=== PATIENT | female | born 1975 | race Hispanic/Latino ===

== ENCOUNTER 2017-12-26 21:51 | Emergency (ER) | payer OTHER, SELFPAY ==
[2017-12-26 21:52] VITALS: BP 119/79; PULSE 67; RESP 15; TEMP 36.7; BMI 23.6
--- NOTE | 2017-12-26 22:00 | RAD_ITS ---
STUDY: X-RAY - LEFT FOOT CLINICAL: Female, 41 years old. Urinary TECHNIQUE: 3 view(s) of the foot. COMPARISON: None. FINDINGS: There is comminuted fracture at the tuft of the second distal phalanx. This appears chronic in nature. There is mild hallux valgus. Normal talus, calcaneus, and tarsal bones. Normal visualized subtalar, talonavicular, calcaneocuboid, tarsal and tarsometatarsal articulations. Normal metatarsi. Normal metatarsophalangeal joint of the great toe. Normal tibial and fibular sesamoid bones. Normal interphalangeal joint of the great toe. Normal phalanges of the great toe. Normal second through fifth metatarsophalangeal joints. Normal interphalangeal joints of the lesser toes. The soft tissue structures are unremarkable. RAD/Foot min 3 Views IMPRESSION: Chronic fracture, tuft of the second distal phalanx No acute fracture Electronically Signed: Robles Moise MD at 22:18 EST Tel , Service support ,
--- NOTE | 2017-12-26 22:47 | ED.DCSUM_ITS ---
- ER Visit Summary Date of Service: 12/26/17 Chief Complaint: Injury left foot near MTP joint left great toe History of Present Illness: The patient is a 41 F who reports she dropped a can on her foot this morning. She complains of pain over the MTP joint of her left great toe. She denies any paresthesia, anesthesia or motor weakness. She reports the pain has gotten worse since the injury. She has no other complaints Physical Examination: There is slight erythema over the MTP joints of the left great toe. There is no subungual hematoma. DP and PT pulses are palpable. There is no pain palpation over the second, third, fourth or fifth metatarsal. There is no pain the patient over the proximal, middle or distal phalanx of the second, third, fourth or fifth toe. Test Results: Three-view x-ray of the foot was obtained and interpreted by me as negative for acute process. She has evidence of a prior fracture distal phalanx left second toe that is comminuted. Emergency Department Course and Treatment: Protocol for x-ray Treatment Plan: Ice, rest, elevation and anti-inflammatory agents since there is no contraindication Disposition: Discharge to home Impression: Contusion left foot secondary to blunt injury initial encounter This note was generated with Vonjour dictation software. It may contain incorrect words, spelling, and punctuation that were not noted in review of the chart prior to signing ED Disposition - Plan for ED Patient: Disposition: Home or Assisted Living Chief Complaint: Lower Extremity Injury Instructions: ED Contusion Foot Referrals: Rafael Andrea, MEDICAL RADIATION THERAPIST-C [Primary Care Provider] - 1 Week if not improving Additional Instructions: Apply ice 6 times a day for 20-30 minutes at a time. Take either 4 Advil every 8 hours or 2 Aleve every 12 hours for the next 3-5 days for pain control.
[2017-12-26 23:02] VITALS: RESP 16
--- NOTE | 2017-12-26 23:02 | ED.RN ---
REVIEWED D/C INSTRUCTIONS, FOLLOW UP CARE, AND S/S THAT WOULD WARRANT A RETURN TO THE ED WITH PT. PT VERBALIZED AN UNDERSTANDING AND DENIES FURTHER QUESTIONS FOR THIS RN. PT SKIN P/W/D, RESP EVEN AND UNLABORED, PT A&O X 3, NO DISTRESS NOTED. PT AMBULATED OUT OF ED, GAIT STEADY.
== END 2017-12-26 23:08 | disposition home or self-care (01) ==
PROVIDERS: Emergency Provider Emergency Medicine; Family Provider Nurse Practitioner Family; PCP Nurse Practitioner Family
DX: S90.32XA Contusion of left foot, initial encounter (principal); W22.8XXA Striking against or struck by other objects, initial encounter; Y93.9 Activity, unspecified; Z72.0 Tobacco use; F31.9 Bipolar disorder, unspecified; Z79.899 Other long term (current) drug therapy
CPT/HCPCS: 73630; 99282

== ENCOUNTER → 2018-04-09 12:26 | Outpatient (CLI) | payer OTHER, SELFPAY ==
[2018-04-09 13:52] LABS: Absolute Lymphocyte Count 2.92 X10^3/ul (0.83-4.51); Absolute Neutrophil Count 7.9 X10^3/uL (2.0-7.7); Basophil# 0.03 X10^3/uL; Basophil% 0.2 % (0-1); Eosinophil# 0.29 X10^3/uL; Eosinophils% 2.4 % (0-5); Hematocrit 42.7 % (37-47); Hemoglobin 13.9 g/dl (12.0-15.0); Immature Platelet Fraction 1.1 % (1.0-7.9); Lymphocyte # 2.92 X10^3/ul (4.0); Lymphocyte % 24.3 % (19-41); Mean Corp Hgb Conc 32.6 g/gl (32-36); Mean Corpuscular Hgb 26.6 pg (27.0-32.0); Mean Corpuscular Volume 81.6 fL (81-99); Mean Platelet Vol. 9.8 fl (6.2-12.0); Monocyte# 0.83 X10^3/uL; Monocyte% 6.9 % (0-10); Neutrophil # 7.94 X10^3/uL (2.7-7.7); POSITIVE COUNT NO; POSITIVE DIFFERENTIAL NO; POSITIVE MORPHOLOGY NO; Platelet Count 280 K/mm3 (150-450); RBC Distribution Width CV 14.8 % (11.6-14.6); RBC Distribution Width SD 43.9 fl (35.1-43.9); RET-HE 28.7 pg (30-35); Red Blood Count 5.23 M/mm3 (4.2-5.4); Reticulocyte Count 1.23 % (0.5-1.5)
[2018-04-09 14:07] LABS: ALB/GLOB Ratio 1.1 RATIO (0.9-2.4); AST(SGOT) 14 U/L (15-37); Alanine Aminotransfer ALT/SGPT 15 U/L (13-56); Albumin, Serum 3.9 g/dL (3.2-5.0); Alkaline Phosphatase 69 U/L (45-117); Anion Gap 7 (5-15); BUN 5 mg/dL (7-18); Calcium,Total 8.7 mg/dL (8.5-10.1); Chloride 107 mmol/L (98-107); Cholesterol 174 mg/dL (200); Creatinine, Serum 0.63 mg/dL (0.55-1.02); EST Glomerular Filtration Rate 110 mL/min (>60); Est Glom Filt Rate - Afr Amer 133 mL/min (>60); Globulin 3.7 g/dL (2.2-4.2); Glucose 113 mg/dL (74-106); High Density Lipoprotein 33 mg/dL; Iron 37 ug/dL (50-170); Iron Binding Capacity,Total 277 ug/dL (250-450); Potassium 3.9 mmol/L (3.5-5.1); Protein, Total 7.6 g/dL (6.4-8.2); Sodium Level 138 mmol/L (136-145); Triglycerides 192 mg/dL; Very Low Density Lipoprotein 38 mg/dL (5-40)
[2018-04-09 14:13] LABS: Hemoglobin A1c 5.8 % (4.2-6.3)
== END ==
PROVIDERS: Family Provider Nurse Practitioner Family; PCP Nurse Practitioner Family; Visit Provider Nurse Practitioner Family
DX: E78.5 Hyperlipidemia, unspecified (principal); R73.01 Impaired fasting glucose; D63.8 Anemia in other chronic diseases classified elsewhere; Z79.899 Other long term (current) drug therapy
CPT/HCPCS: 80053; 80061; 83036; 83540; 83550; 85025; 85045

== ENCOUNTER → 2018-11-25 14:00 | Outpatient (CLI) | payer BC, OTHER, SELFPAY ==
--- NOTE | 2018-11-25 14:10 | RAD_ITS ---
STUDY: X-RAY CHEST REASON FOR EXAM: Female, 42 years old. Acute bronchitis diagnosed 1st week of October. Cannot keep food or medication down. TECHNIQUE: PA and lateral chest COMPARISON: None. FINDINGS: The lungs are clear and expanded. Normal cardiomediastinal silhouette, sampson and pleural margins. No acute osseous or upper abdominal process. RAD/Chest PA and Lateral IMPRESSION: No acute cardiopulmonary process. No convincing radiographic evidence of acute bronchitis/bronchiolitis or focal pneumonia. Electronically Signed: Rafael Macias MD at 17:51 EST Tel , Service support ,
== END ==
PROVIDERS: Family Provider Nurse Practitioner Family; PCP Nurse Practitioner Family; Referring Provider Nurse Practitioner Family; Visit Provider Nurse Practitioner Family
DX: J20.9 Acute bronchitis, unspecified (principal)
CPT/HCPCS: 71046

== ENCOUNTER → 2019-07-08 11:36 | Outpatient (CLI) | payer BC, OTHER, SELFPAY ==
[2019-07-08 12:32] LABS: Hematocrit 44.7 % (37-47); Hemoglobin 14.6 g/dL (12.0-15.0); Mean Corp Hgb Conc 32.7 g/dL (32-36); Mean Corpuscular Hgb 27.1 pg (27.0-32.0); Mean Corpuscular Volume 83.1 fL (81-99); Mean Platelet Vol. 10.1 fl (6.2-12.0); Platelet Count 285 K/mm3 (150-450); RBC Distribution Width CV 14.7 % (11.6-14.6); RBC Distribution Width SD 44.5 fl (35.1-43.9); Red Blood Count 5.38 M/mm3 (4.2-5.4); White Blood Count 11.4 K/mm3 (4.4-11.0)
[2019-07-08 12:51] LABS: Hemoglobin A1c 5.4 % (4.2-6.3)
[2019-07-08 13:10] LABS: ALB/GLOB Ratio 1.2 RATIO (0.9-2.4); AST(SGOT) 14 U/L (15-37); Alanine Aminotransfer ALT/SGPT 19 U/L (13-56); Alkaline Phosphatase 71 U/L (45-117); Anion Gap 5 (5-15); BUN 6 mg/dL (7-18); BUN/Creat Ratio 10.2 RATIO (10-20); Calcium,Total 9.1 mg/dL (8.5-10.1); Chloride 110 mmol/L (98-107); Cholesterol 203 mg/dL (200); Creatinine, Serum 0.59 mg/dL (0.55-1.02); EST Glomerular Filtration Rate 118 mL/min (>60); Est Glom Filt Rate - Afr Amer 143 mL/min (>60); Globulin 3.4 g/dL (2.2-4.2); Glucose 100 mg/dL (74-106); High Density Lipoprotein 28 mg/dL; Protein, Total 7.4 g/dL (6.4-8.2); Sodium Level 139 mmol/L (136-145); Triglycerides 493 mg/dL
== END ==
PROVIDERS: Family Provider Nurse Practitioner Family; PCP Nurse Practitioner Family
DX: Z79.899 Other long term (current) drug therapy (principal)
CPT/HCPCS: 36415; 80053; 80061; 83036; 85027

== ENCOUNTER 2019-12-05 22:13 | Emergency (ER) | payer BC, OTHER, SELFPAY ==
[2019-12-05 22:14] VITALS: BP 142/79; PULSE 66; RESP 15; TEMP 36.6; O2SAT 99; BMI 22.8
--- NOTE | 2019-12-05 22:35 | ED.VISSUMM ---
- ER Visit Summary Date of Service: 12/05/19 Chief Complaint: Right shoulder pain History of Present Illness: The patient is a 43 F with right shoulder pain that started this evening at work when she turned. It feels like when she had a pinched nerve in the past. The pain is in her right scapular region. Does not radiate to the arm or neck. She denies chest pain or respiratory symptoms. Denies weakness or numbness. No trauma. Physical Examination: Afebrile and vital signs unremarkable. Inspection is normal. Good range of motion. Tenderness to palpation over the right scapula. Lungs clear. Heart regular. Good strength, sensation, pulses. Neck is nontender. Test Results: None indicated Emergency Department Course and Treatment: Patient has myofascial back pain. She has an allergy to NSAIDs. She was treated with Kenalog and Norflex. Will prescribe Flexeril for home. She can use Tylenol for pain. Follow-up with primary care. Treatment Plan: As above Disposition: Discharge Impression: 1. Right shoulder pain This note was generated with Super[employer] dictation software. It may contain incorrect words, spelling, and punctuation that were not noted in review of the chart prior to signing ED Disposition - Plan for ED Patient: Referrals: Rafael Andrea, YONY-C [Primary Care Provider] -
--- NOTE | 2019-12-05 22:37 | ED.DEP ---
ED Disposition - Plan for ED Patient: Instructions: SHOULDER PAIN (Uncertain Cause) Prescriptions: cycloBENZAPRine HCl [Flexeril] 10 mg PO TID PRN #20 tab PRN Reason: Muscle Spasm Prescription Printed Referrals: Rafael Andrea, ASSOCIATE PROFESSOR OF SURGERY-C [Primary Care Provider] -
[2019-12-05] MEDS: Orphenadrine 60 MG/2 ML Ampul IM (22:45)
[2019-12-05] MEDS: Triamcinolone Acetonide 40 MG/ML Vial IM (22:47)
== END 2019-12-05 23:20 | disposition home or self-care (01) ==
LOC: ED 22:38
PROVIDERS: Emergency Provider Emergency Medicine; PCP Nurse Practitioner Family
DX: M25.511 Pain in right shoulder (principal); Z72.0 Tobacco use
CPT/HCPCS: 96372; 99282

== ENCOUNTER 2021-03-11 22:57 | Emergency (ER) | payer OTHER, SELFPAY ==
[2021-03-11 22:58] VITALS: BP 130/77; PULSE 81; RESP 15; TEMP 35.8; O2SAT 95; BMI 24.5
--- NOTE | 2021-03-11 23:40 | EDS_ITS ---
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 No lacerations, she was briefly dazed and has been seen spots in her vision off and on, no flashes of light or loss of vision anywhere. She has a frontal headache, no nausea or vomiting or confusion. No lateralizing neurologic symptoms peripherally no trouble walking, talking, thinking. No seizure. [facility] Medical History Bipolar disorder Hypersomnolence Nicotine dependence Home Medications Seroquel 100 mg PO QHS 10/01/14 [History Last Taken Unknown] escitalopram oxalate 20 mg PO QHS 01/05/17 [History Last Taken Unknown] hydroxyzine HCl 10 mg PO PRN PRN 01/05/17 [History Last Taken Unknown] lamotrigine [Lamictal] 400 mg PO QHS 04/03/17 [History Last Taken Unknown] cyclobenzaprine 10 mg PO TID PRN #20 tab 12/05/19 [Rx Last Taken Unknown] Allergy/AdvReac Type Severity Reaction Status Date / Time Penicillins Allergy Shortness Verified 03/11/21 23:02 of breath NSAIDS (Non-Steroidal AdvReac Nausea Verified 03/11/21 23:02 Anti-Inflamma Surgical History H/O: hysterectomy Social History Smoking Status: Current every day smoker ROS ROS ED Constitutional Constitutional ED: Denies chills or fever(s) Eyes Eyes: Reports as per HPI and change in vision; Denies blurry vision or diplopia ENT ENT ED: Denies rhinorrhea or sore throat Cardiovascular Cardiovascular: Denies chest pain or palpitations Respiratory/Chest Respiratory/Chest: Denies cough or dyspnea Gastrointestinal Gastrointestinal: Denies abdominal pain, diarrhea, nausea or vomiting Genitourinary Genitourinary ED: Denies dysuria or hematuria Musculoskeletal Musculoskeletal: Denies back pain or neck pain Integumentary Denies abscess or rash Neurologic Neurologic: Reports headache(s); Denies paresthesias or weakness Psychiatric Psychiatric: Denies anxiety or suicidal thoughts EXAM Physical Exam Const Vital Signs: 03/11/21 22:58 03/11/21 23:10 Temperature 96.4 F L Temperature Source Temporal Pulse Rate 81 Respiratory Rate 15 Blood Pressure 130/77 H Blood Pressure Mean 94 Pulse Ox 95 Oxygen Delivery Method Room Air Room Air Positive well nourished and well developed General Appearance ED: well developed and NAD HEENT Reports TM's clear and moist mucous membranes HEENT Narrative: Mildly tender left top of head, scalp is otherwise normal- appearing without hematoma, crepitance, depression normocephalic, atraumatic, scalp tenderness and other Other Details: No periorbital ecchymosis. No hemotympanum, TMs clear bilaterally. ; Negative for Rod's sign Tympanic Membrane ED: Yes TM's clear Eyes PERRL and EOMs intact bilaterally Neck full ROM and supple Resp normal respiratory effort and clear to auscultation bilaterally Cardio regular rate, regular rhythm and no murmurs GI non-tender and non-distended Auscultation: normoactive bowel sounds Palpation: soft Back/Spine no CVA tenderness General Back: other FROM Extremity normal to inspection General Extremety ED: Negative for edema, pulses abnormal or tenderness General Extremity: Negative for edema or pulses abnormal Neuro oriented x3, CN's II-XII intact bilaterally and no sensory deficits noted Oli Coma Scale: document GCS findings Spontaneous Obeys Commands Oriented 15 Sensorium / Orientation: awake and alert Motor Exam: strength 5/5 throughout Skin no rashes or lesions noted and no wounds MDM MDM MDM Narrative Medical decision making narrative: Patient meets the [place] CT head rule for observation without the need for scanning at this time. I discussed this with her, she is comfortable with that. We discussed reasons to return, but the chances of intracranial clinically significant injury is extremely low here especially with the mechanism. She is written off for tomorrow, since she is at the end of her shift, given some acetaminophen since she does not tolerate NSAIDs well, and appropriate discharge instructions with follow-up. Discharge Plan Triage Chief Complaint: Head Injury ED Provider: Carlos Shaffer Dx/Rx/DC Orders Clinical Impression: Closed head injury without loss of consciousness Instructions: ED Head Injury (Adult) Prescriptions: No Action Seroquel 100 mg PO QHS RF: 0 hydroxyzine HCl 10 MG tablet 10 mg PO PRN PRN (Reason: Anxiety) RF: 0 escitalopram oxalate 20 MG tablet 20 mg PO QHS RF: 0 lamotrigine [Lamictal] 200 MG tablet 400 mg PO QHS RF: 0 cyclobenzaprine 10 MG tablet 10 mg PO TID PRN (Reason: Muscle Spasm) Qty: 20 RF: 0 Stand Alone Forms: Work Status Form Primary Care Provider: Rafael Andrea NP Referrals: [facility] [GROUP OF PHYSICIANS] - 2 Days Rafael Andrea FISH NET STRINGER, FISH NET STRINGER-C [Primary Care Provider] - Disposition Disposition: Home, self care
[2021-03-12 00:03] VITALS: BP 112/88
[2021-03-12] MEDS: Acetaminophen 500 MG Tablet 1000 MG PO (00:05)
== END 2021-03-12 00:06 | disposition home or self-care (01) ==
PROVIDERS: Emergency Provider Emergency Medicine; PCP Nurse Practitioner Family
DX: S09.90XA Unspecified injury of head, initial encounter (principal); W22.8XXA Striking against or struck by other objects, initial encounter; Y93.89 Activity, other specified; Y92.63 Factory as the place of occurrence of the external cause; Y99.0 Civilian activity done for income or pay; F17.200 Nicotine dependence, unspecified, uncomplicated
CPT/HCPCS: 99283

== ENCOUNTER 2021-08-24 15:33 | Emergency (ER) | payer OTHER, SELFPAY ==
[2021-08-24 15:34] VITALS: BP 113/66; PULSE 72; RESP 19; TEMP 35.9; O2SAT 99; BMI 23.3
--- NOTE | 2021-08-24 15:59 | EDS_ITS ---
HPI History of Present Illness Chief Complaint: Allergic Reaction Narrative Narrative: 45-year-old female presenting with eye irritation bilaterally as well as burning in her naris. She believes it was due to some fiberglass carpeting in a place where she interviewed today. She was wearing safety goggles and does not believe she had anything in her eyes. She does not have any shortness of breath, throat tightness, rash, abdominal pain. Patient states she took nothing prior to arrival. She denies any symptoms of cough or cold. [facility] Medical History Bipolar disorder Hypersomnolence Nicotine dependence Home Medications Seroquel 100 mg PO QHS 10/01/14 [History Last Taken Unknown] escitalopram oxalate 20 mg PO QHS 01/05/17 [History Last Taken Unknown] hydroxyzine HCl 10 mg PO PRN PRN 01/05/17 [History Last Taken Unknown] lamotrigine [Lamictal] 400 mg PO QHS 04/03/17 [History Last Taken Unknown] cyclobenzaprine 10 mg PO TID PRN #20 tab 12/05/19 [Rx Last Taken Unknown] Allergy/AdvReac Type Severity Reaction Status Date / Time Penicillins Allergy Shortness Verified 08/24/21 15:35 of breath NSAIDS (Non-Steroidal AdvReac Nausea Verified 08/24/21 15:35 Anti-Inflamma Surgical History H/O: hysterectomy Social History Smoking Status: Current every day smoker tobacco type: cigarettes ROS ROS ED Constitutional Constitutional ED: Denies chills, fever(s) or sweats Eyes Eyes: Reports other Details: Bilateral eye itching ; Denies blurry vision or change in vision ENT ENT ED: Reports other Details: Burning there ; Denies ear pain or sore throat Cardiovascular Cardiovascular: Denies chest pain, palpitations or racing heartbeat Respiratory/Chest Respiratory/Chest: Denies cough, dyspnea or sputum Gastrointestinal Gastrointestinal: Denies abdominal pain, constipation, diarrhea, nausea or vomiting Genitourinary Genitourinary ED: Denies dysuria, hematuria or urinary frequency Musculoskeletal Musculoskeletal: Denies arthralgias, myalgias or neck pain Integumentary Denies abscess, Abrasions or rash Neurologic Neurologic: Denies headache(s), paresthesias or weakness Psychiatric Psychiatric: Denies anxiety, depression, suicidal ideation or suicidal thoughts Endocrine Endocrinology: Denies polydipsia or polyuria EXAM Physical Exam Const Vital Signs: 08/24/21 15:34 Temperature 96.6 F L Temperature Source Temporal Pulse Rate 72 Respiratory Rate 19 H Blood Pressure 113/66 Blood Pressure Mean 81 Pulse Ox 99 Oxygen Delivery Method Room Air Positive well nourished General Appearance ED: NAD; Negative for pallor HEENT Reports normocephalic, head/scalp atraumatic and moist mucous membranes HEENT Narrative: Eyes are noninjected. Oropharynx is patent without stridor. No sublingual edema. Negative for trauma Eyes PERRL and EOMs intact bilaterally Neck no lymphadenopathy and supple Chest Wall inspection of chest normal and palpation of chest normal Resp normal respiratory effort and clear to auscultation bilaterally Auscultation: Negative for rales, rhonchi or wheezes Cardio regular rate and regular rhythm Narrative: Deferred Back/Spine Cervical Spine: cervical spine tenderness Neuro oriented x3 and CN's II-XII intact bilaterally Sensorium / Orientation: alert Motor Exam: strength 5/5 throughout Psych mental status grossly normal Attitude: No agitated Skin no rashes or lesions noted and no wounds General Skin Exam: Negative for jaundice or pallor MDM MDM MDM Narrative Medical decision making narrative: 45-year-old female presenting with presumed allergy to the carpeting in the place where she was applying for a job. He does not have any sign of anaphylactic reaction. Her eyes are noninjected. She does not believe she had any foreign bodies in her eyes because she was wearing safety goggles. Her vital signs are normal. Her physical exam is normal. I counseled her to use Benadryl at home. I offered her a first dose here and she declined. I also did intellectual property counsel her that she could try rewetting eyedrops. I would have given her Toradol eyedrops however she is allergic to NSAIDs. Patient disch arged home in stable condition. Impression: 1. Allergic reaction Discharge Plan Triage Chief Complaint: Allergic Reaction ED Provider: Alfa Scott Dx/Rx/DC Orders Instructions: ED General Allergic Reactions Prescriptions: No Action Seroquel 100 mg PO QHS RF: 0 hydroxyzine HCl 10 MG tablet 10 mg PO PRN PRN (Reason: Anxiety) RF: 0 escitalopram oxalate 20 MG tablet 20 mg PO QHS RF: 0 lamotrigine [Lamictal] 200 MG tablet 400 mg PO QHS RF: 0 cyclobenzaprine 10 MG tablet 10 mg PO TID PRN (Reason: Muscle Spasm) Qty: 20 RF: 0 Primary Care Provider: Rafael Andrea NP Referrals: Rafael Andrea NP, PRINTING GRAY CLOTH TENDER-C [Primary Care Provider] - Disposition Disposition: Home, Self Care
== END 2021-08-24 16:08 | disposition home or self-care (01) ==
LOC: ED 16:02
PROVIDERS: Emergency Provider Student in an Organized Health Care Education/Training Program; PCP Nurse Practitioner Family
DX: T78.40XA Allergy, unspecified, initial encounter (principal); X58.XXXA Exposure to other specified factors, initial encounter; F31.9 Bipolar disorder, unspecified; F17.210 Nicotine dependence, cigarettes, uncomplicated; Z79.899 Other long term (current) drug therapy
CPT/HCPCS: 99282

== ENCOUNTER → 2023-01-20 | Outpatient (CLI) | payer OTHER, SELFPAY ==
[2023-01-20 11:58] LABS: Hematocrit 40.6 % (37-47); Hemoglobin 13.1 g/dL (12.0-15.0); Mean Corp Hgb Conc 32.3 g/dL (32-36); Mean Corpuscular Hgb 27.2 pg (27.0-32.0); Mean Corpuscular Volume 84.4 fL (81-99); Mean Platelet Vol. 8.9 fl (6.2-12.0); Platelet Count 302 K/mm3 (150-450); RBC Distribution Width CV 14.3 % (11.6-14.6); RBC Distribution Width SD 43.9 fl (35.1-43.9); Red Blood Count 4.81 M/mm3 (4.2-5.4); White Blood Count 11.1 K/mm3 (4.4-11.0)
[2023-01-20 12:20] LABS: ALB/GLOB Ratio 1.1 RATIO (0.9-2.4); AST(SGOT) 13 U/L (15-37); Alanine Aminotransfer ALT/SGPT 15 U/L (13-56); Albumin, Serum 3.4 g/dL (3.2-5.0); Alkaline Phosphatase 58 U/L (45-117); Anion Gap 2 (5-15); BUN 8 mg/dL (7-18); BUN/Creat Ratio 15.4 RATIO (10-20); Chloride 113 mmol/L (98-107); Creatinine, Serum 0.52 mg/dL (0.55-1.02); EST Glomerular Filtration Rate 134 mL/min (>60); Est Glom Filt Rate - Afr Amer 162 mL/min (>60); Globulin 3.1 g/dL (2.2-4.2); Glucose 120 mg/dL (74-106); Potassium 3.6 mmol/L (3.5-5.1); Protein, Total 6.5 g/dL (6.4-8.2); Sodium Level 140 mmol/L (136-145)
[2023-01-21 18:45] LABS: Hemoglobin A1c 5.2 % (3.8-5.6)
[2023-01-22 08:43] LABS: Cholesterol 194 mg/dL (200); High Density Lipoprotein 36 mg/dL; Triglycerides 89 mg/dL; Very Low Density Lipoprotein 18 mg/dL (5-40)
== END | disposition home or self-care (01) ==
LOC: LAB 11:26
PROVIDERS: PCP Nurse Practitioner Family; Visit Provider Nurse Practitioner Family
DX: R73.01 Impaired fasting glucose (principal); F31.9 Bipolar disorder, unspecified; D64.9 Anemia, unspecified; E78.5 Hyperlipidemia, unspecified; E78.1 Pure hyperglyceridemia
CPT/HCPCS: 36415; 80053; 80061; 83036; 85027

== ENCOUNTER 2024-01-04 11:02 | Day surgery (SDC) | payer OTHER, SELFPAY ==
[2024-01-01 14:29] LABS: Hematocrit 41.4 % (37-47); Hemoglobin 13.4 g/dL (12.0-15.0); Mean Corp Hgb Conc 32.4 g/dL (32-36); Mean Corpuscular Hgb 26.9 pg (27.0-32.0); Platelet Count 306 K/mm3 (150-450); RBC Distribution Width CV 14.7 % (11.6-14.6); RBC Distribution Width SD 44.5 fl (35.1-43.9); Red Blood Count 4.99 M/mm3 (4.2-5.4)
[2024-01-01 14:53] LABS: Magnesium 2.2 mg/dL (1.6-2.6)
[2024-01-01 15:06] LABS: Amphetamine Urine VISTA NEGATIVE (<1000 ng/mL); Barbiturate Urine VISTA NEGATIVE (< 200 ng/mL); Benzodiazepine Urine VISTA NEGATIVE (< 200 ng/mL); Cocaine Urine VISTA NEGATIVE (< 300 ng/mL); Ecstacy Urine VISTA NEGATIVE (< 500 ng/mL); Methadone Urine VISTA NEGATIVE (< 300 ng/mL); PCP Urine VISTA NEGATIVE (< 25 ng/mL); THC Urine VISTA POSITIVE (< 50 ng/mL); Vista UDS pH Range 6
[2024-01-01 15:07] LABS: Vitamin D,25 Hydroxy 7.6 ng/mL
[2024-01-01 15:24] LABS: Hemoglobin A1c 5.4 % (3.8-5.6)
[2024-01-02 08:29] LABS: COTININE Drug Screen Positive (<200 ng/mL)
[2024-01-04] VITALS (8 sets, daily range): BP systolic 113–124; BP diastolic 50–64; PULSE 53–71; RESP 16; TEMP 36.1–36.4; O2SAT 95–100; BMI 19.7
--- NOTE | 2024-01-04 11:24 | EKG12_ITS ---
Test Reason : preop Blood Pressure : / mmHG Vent. Rate : 054 BPM Atrial Rate : 054 BPM P-R Int : 170 ms QRS Dur : 100 ms QT Int : 438 ms P-R-T Axes : 081 082 056 degrees QTc Int : 415 ms Sinus bradycardia Otherwise normal ECG When compared with ECG of 13-APR-2017 00:40, Vent. rate has decreased BY 34 BPM Nonspecific T wave abnormality no longer evident in Inferior leads Confirmed by Cesar Castaneda ([id number]), editorial manager MAT RODRIGUEZ ([id number]) on 01/08/2024 11:32:25 AM Referred By: Greg Yin Confirmed By:Cesar Castaneda
[2024-01-04] MEDS: Acetaminophen 500 MG Tablet 1000 MG PO (11:52)
[2024-01-04] MEDS: Magnesium 1 GM over 15 mins IV (11:52)
[2024-01-04] MEDS: Lactated Ringers 1,000 ML 15 ML IV (11:52)
[2024-01-04] MEDS: Gabapentin 600 MG Tablet PO (11:52)
[2024-01-04 12:15] LABS: Bedside Glucose 141 mg/dL (74-106)
[2024-01-04] MEDS: Clindamycin 900 MG/50 ML BAG 75 MG IV (13:13)
[2024-01-04] MEDS: Bupivacaine Mpf 0.5% 30 ML VIAL (13:20)
--- NOTE | 2024-01-04 14:00 | RAD_ITS ---
STUDY: X-RAY - LEFT FOOT CLINICAL: Female, 48 years old. ERAS FIRST TMTJ ARTHRODESIS WITH HARVEST OF CALCANEAL BONEGRAFT TECHNIQUE: 2 view(s) of the foot. COMPARISON: 12/26/2017 FINDINGS: 200 seconds of fluoroscopy of the left foot was utilized in the operating room during first tarsometatarsal joint arthrodesis and 8 images are cemented for interpretation. . RAD/Foot 2 Views IMPRESSION: Fluoroscopy during first tarsometatarsal joint arthrodesis. Electronically Signed: Rafael Barnett MD at 20:33 EST ,
--- NOTE | 2024-01-04 16:15 | OP.PCM_ITS ---
Problems Associated Problem List Diagnoses (1) Hallux valgus of left foot: (2) Pain in left foot: (3) Short Achilles tendon (acquired), left ankle: (4) Other hammer toe(s) (acquired), left foot: (5) Achilles tendinitis, left leg: (6) Pain in left ankle and joints of left foot: Report of Operation Date of Procedure: 01/04/24 Pre-Operative Diagnosis: 1. Hallux valgus, left foot 2. Hammertoes, second and third digit, left foot 3. Pain left foot secondary to osteoarthritis 4. Short Achilles tendon, left lower extremity 5. Pain, left foot Post-Operative Diagnosis: 1. Hallux valgus, left foot 2. Hammertoes, second and third digit, left foot 3. Pain left foot secondary to osteoarthritis 4. Short Achilles tendon, left lower extremity 5. Pain, left foot Surgery/Procedure Performed:: 1. Endoscopic gastroc recession, left lower extremity 2. [place] of calcaneal bone graft, left foot 3. Arthrodesis first metatarsal phalangeal joint, left foot 4. Capsulotomy of the first metatarsophalangeal joint, left foot 5. Lesser metatarsal osteotomy, second metatarsal, left foot 6. Lesser metatarsal osteotomy, third metatarsal, left foot 7. Flexor tenotomy, fourth digit, left foot Description of Surgical Findings:: 1. Increased range of motion of the left ankle with the knee extended and flexed, left lower extremity 2. Reduction of hallux valgus deformity, left foot 3. Improvement to hammertoes after lesser metatarsal osteotomies to second and third metatarsal, left foot 4. More rectus fourth digit after flexor tenotomy, left foot Surgeon: Greg Yin truck service manager: Wisam Wright Type of Anesthesia: General and Local Anesthesiologist: Portillo Bruce Special Medications: Per anesthesia Specimen's removed: None Drains: None Estimated Blood Loss (mL): 35 mL Fluids Replaced: Per anesthesia Description of Procedure: Indications For Operation: Ms. Reed is a 48-year-old female who was admitted to [facility] for elective bunion corrective surgery as well as lower extremity surgery to the left lower extremity. Patient is well-known to my practice and was seen in office for surgical consultation with all risk and benefits discussed with the patient in great detail. Patient originally presented with chronic pain with valgus deformity to her left foot. Patient has failed all conservative methods consisting of shoe gear modification, treatment with padding, strapping and other types of treatment consisting of oral anti- inflammatories without success. Patient has failed all conservative treatment at this time. We are recommending surgical intervention. The patient does understand all risk, benefits and complications for the surgical procedure. All questions have been answered to the patient with great detail. Due to left lower extremity deformity it has been deemed necessary at this time to take the patient to the operating room to perform the above procedure to decrease her constant pain. The nature of the problem, anticipated procedures, postop recovery/convalences and risk/complications include but not limited to infection, wound healing complications, digital amputation, hypertrophic scarring, numbness, tingling, chronic pain, CRPS, over and under correction, recurrence of deformity, DVT and or PE and the need for further surgery have been discussed in great detail with the patient. All questions have been answered to the patient's satisfaction. There are no guarantees given as to the outcome of the procedure. Description of Procedure: Under mild sedation, the patient was brought into the operating room and placed on the operating table in supine position. Once the patient was under general anesthesia with laryngeal mask airway, the left lower extremity was blocked using approximately 10 cc 0.5% Marcaine plain to the saphenous nerve. Patient has received popliteal block per anesthesia and holding prior to the procedure. Please see anesthesia notes for further detail. Next, a well-padded thigh tourniquet was applied to the left lower extremity. Next, the left lower extremity was prepped and draped in normal aseptic manner. Next, a timeout was then undertaken verifying the correct patient, extremity, visibility of preoperative markings, availability of the equipment. Next, attention was directed to the left lower extremity. Using a 6 inch Esmarch, left lower extremity was exsanguinated and elevated to 60 degrees for 1 minute. Next, the tourniquet was inflated to 275 mmHg. Procedure #1, endoscopic gastroc recession, left lower extremity Next, attention was directed to the left lower extermity. A silfverskiold test was performed on the operating table. There was evidence of a positive Silfverskiold test for gastrocnemius equinus. Next, attention was directed to the aponeurosis of the gastrocnemius muscle. A small stab incision was placed approximately 2 to 3 cm from the gastroc insertion. Using the Kalee barrel rib matting machine operator the aponeurosis was bow strong and then advanced to the lateral aspect of the left lower extremity. Once tenting of the skin was identified a small stab incision was made with a 15 blade laterally. Using the Kalee obturator and cannula, it was advanced through both incisions. Using the Hillside 30 degree 4. 0 mm scope there showed evidence of the aponeurosis of the gastrocnemius muscle. Using the rasp the muscle fibers/Sub Q were removed from the aponeurosis tissue. Using the Hillside 30 degree 4.0 mm scope and combination of hook and triangle blade blade, careful incision across the aponeurosis was made half laterally then half medially until released. After release of the aponeurosis the ankle was put through range of motion with the knee extended as well as flexed and showed to be increased past 90 in both positions. Both incisions were flushed with copious ivet of warm saline. The skin was reapproximated and closed with 3-0 nylon in simple interrupted suture technique. Procedure #2, [place] of calcaneal bone graft, left foot Next, attention was directed to the lateral aspect of the left calcaneus. Using a #15 blade, a full-thickness incision, approximately 1 cm, was made down to bone without incident. Continued blunt dissection was carried out with curved hemostats. Using the Sonico 7 mm bone graft harvester, calcaneal bone harvest less than than 5 cc was made, then removed from the calcaneus and passed the back table to be used later in the case, for the first tarsometatarsal joint arthrodesis procedure. The incision was flushed with copious ivet of normal saline. The skin was reapproximated and closed using 3-0 nylon in simple interrupted suture technique. Procedure #3, first tarsal metatarsal joint arthrodesis, left foot /procedure #4, capsulotomy of the first metatarsal phalangeal joint (through a separate incision), left foot Next, attention was directed to the dorsal aspect of the left foot. Using fluoroscopy, the first tarsometatarsal joint was visualized. A longitudinal 3.5 cm incision with a #15 blade was made just medial to the extensor hallucis longus tendon. The incision was made down to the periosteum with care to retract the tendon laterally. The periosteum was reflected. The first tarsometatarsal joint was exposed and identified. Careful dissection was carried down to the level of the first tarsometatarsal joint as well as in the lateral space between the first and second metatarsal. The ligaments were then released at the tarsometatarsal joint with planing with sagittal saw. After planing was performed, the plantar ligaments were released with the Tritome. Ne xt, through a separate incision, a capsulotomy was performed at the lateral aspect of the first metatarsal phalangeal joint. A separate incision approximately 1 cm was made along the lateral aspect of the first metatarsophalangeal joint. Blunt dissection was carried down to the level of the first metatarsophalangeal joint. Using Sonico speed release tool, this was inserted laterally into the joint with joint fluid being exposed but inserted, pushing the fibular suspensory ligament into the space and releasing it completely. There was evidence of excellent release of the first metat arsophalangeal joint, and the metatarsal was able to be pushed laterally without soft tissue force imposing on it. The sesamoids were able to be retracted back into position which was confirmed on the large C-arm fluoroscopy. A capsulotomy incision was flushed with copious ivet normal saline and closed with 3-0 nylon in simple interrupted suture technique. Next, attention was then redirected back to the first metatarsophalangeal joint, the all-in-one positioner was inserted, positioning the first metatarsal into corrected position. Positioning of the cuts were confirmed with large C-arm fluoroscopy. Cuts were then made with the all-in-one device using the sagittal saw and provided blade by Sonico. The compression/distractor was applied. The joint was distracted and the cuts along the base of the first metatarsal and first cuneiform removed. Continued joint prep followed after using a combination of osteoma and curette. The joint was flushed with copious ivet normal saline. Next, the joint was prepped using a fenestration with a 2-0 drill bit along the first cuneiform and base of the first metatarsal. Next, the [place] of calcaneal bone graft autograft was then packed in the first tarsometatarsal joint. At this point, the positioner was reapplied, compression/distractor was closed down and the fulcrum was then inserted on the lateral aspect of the base of the first metatarsal. Dorsiflexion of the hallux was then performed pushing the metatarsal and tarsometatarsal joint into place, pinning with 2 smooth K wires and crossing fashion technique. Next, orthogonal plating was applied using (x2) 13 mm spleed plates by Sonico. Next, stress views were then performed by squeezing the first and second interphalangeal joint and the first metatarsophalangeal joint of the left foot. There showed evidence of mild splaying. Next using the cannulated screw system by Sonico a K wire was driven from the first metatarsal to second cuneiform and a 3 oh cannulated 36 mm screw was inserted with excellent position across this area stabilizing the cuneiform and first metatarsal joint as well as its position. Procedure #5, lesser metatarsal osteotomy, second metatarsal, left foot Next, attention was directed to the level of the second metatarsal phalangeal joint of the left foot. Using large C-arm fluoroscopy the second metatarsal phalangeal joint was marked out. A full-thickness incision using a #15 blade was made approximately 1.5 cm over the joint. Continued blunt dissection was carried down to the level of the joint capsule. The joint capsule was incised to exposed the head of the second metatarsal. Using McGlamery elevator, the soft tissue was freed inferior to the metatarsal head. This allows for reduction of the plantar plate which allowed the second digit to sit down. Using a sagittal saw and #111 blade, central metatarsal osteotomy was made approximately 10 to 15 degrees to the weightbearing surface of the second metatarsal. The bone was released and retracted about 3 mm. Using Hillside 2.0 mm x 11 mm snap off screw, the head of the second metatarsal was fixated in place. Hardware placement was confirmed with large C-arm fluoroscopy. The overhanging shelf was removed with a bone cutter. A hand rasp was used to round off any sharp edges. The incision was flushed with copious amounts normal saline. Procedure #6, lesser metatarsal osteotomy, third metatarsal, left foot Next, attention was directed to the level of the third metatarsal phalangeal joint of the left foot. Using a large C arm fluoroscopy the third metatarsal phalangeal joint was marked out. A full-thickness incision using a #15 blade was made approximately 1.5 cm over the joint. Continued blunt dissection was carried down to the level of the joint capsule. The joint capsule was incised and exposed the head of the third metatarsal. Using a McGlamery elevator, the soft tissue was freed inferior to the metatarsal head. This allowed for reduction of the plantar plate which allowed the third digit to sit down. Using a sagittal saw and #1 and 1 blade, the central metatarsal osteotomy was made approximately 10 to 15 degrees to the weightbearing surface of the third metatarsal. The bone was released and retracted about 3 mm. Using Hillside 2.0 mm x 11 mm snap off screw, the head of the third metatarsal was fixated in place. Hardware placement was confirmed with large C-arm fluoroscopy. The overhanging shelf was removed with a bone cutter. A hand rasp was used around off any sharp edges. The incision was flushed with copious amounts normal saline. Procedure #7, flexor tenotomy, fourth digit, left foot Next, attention was directed to the plantar aspect of the fourth digit at the level of the inferior PIPJ. Using a Estill handle and #69 blade, a small incision was made on the plantar aspect of the fourth digit exposing the long flexor tendon. The flexor tendon was identified and released. There showed evidence of a more rectus fourth digit. Incision was flushed with copious ivet of normal saline. Next, the left lower extremity thigh tourniquet was deflated after 2 hours and reperfusion was noted instantly to the left lower extremity. All open incisions along the first tarsometatarsal joint, lesser metatarsal osteotomies 2 and 3 and flexor tenotomy were flushed with copious ivet of normal saline. All bleeders were cauterized as necessary. The plantar flexor tenotomy along the fourth digit was closed with 4-0 nylon in simple interrupted suture technique. The lesser metatarsal osteotomy incisions to the second and third digit were closed in the same fashion with reapproximation of the subcutaneous layer with 3-0 Vicryl in running suture technique followed by reapproximated of skin and closed with 3-0 nylon in simple interrupted suture technique. The arthrodesis area, periosteal layer was closed with 3-0 Vicryl and running locking suture technique. The subcutaneous layer was reapproximated and closed with 3-0 Vicryl and running suture technique. The skin was reapproximated and closed with 4-0 Monocryl in subcuticular running suture technique. Steri-Strips were applied along the tarsometatarsal joint. The left lower extremity was wiped clean and patted dry. All incisions were covered with Betadine soaked Adaptic, dry sterile dressing and a 2 layer Junior AO splint was applied to the left lower extremity and 90 degree fashion. The patient tolerated the procedure and anesthesia well and apparent satisfactory condition and was transported to the PACU for further monitoring prior to discharge home. Vital signs stable and vascular status intact to all digits bilateral. Post Operative Plan: Weightbearing: No weightbearing to left lower extremity. Full weightbearing to the right lower extremity. Antibiotics: 900 mg clindamycin through the IV DVT Prophylaxis: Aspirin 81 mg twice daily [place]: None Dressing: Betadine soaked Adaptic, dry sterile dressing and a 2 layer Junior AO splint at 90 degrees X-Rays: Post-operative films taken on the operating room. Pain Medication: Percocet 5/325, Flexeril 10 mg 3 times daily Follow-up: Patient will follow-up 1 week in private office with Dr. Yin. At discharge patient was encouraged not to smoke during the postoperative phase as we have discussed smoking sensation in the past as well as today. Patient was understanding of this. Grafts/Implants Used: Treace medical speed plates, snap off screws, via flow Complications None Admit VTE Documentation VTE Present on Admission: No VTE Mechan Device Prophylaxis: SCD's VTE Pharm Prophylaxis ordered?: Yes
== END 2024-01-04 18:30 | disposition home or self-care (01) ==
LOC: SDC 11:06 → AC 11:07
PROVIDERS: Anesthesiology; PCP Nurse Practitioner Family; Referring Provider Podiatrist Foot & Ankle Surgery; Visit Provider Podiatrist Foot & Ankle Surgery
PROC: (CPT 28750; principal; 2024-01-04 12:45)
DX: M20.12 Hallux valgus (acquired), left foot (principal); F31.9 Bipolar disorder, unspecified; M76.62 Achilles tendinitis, left leg; M67.02 Short Achilles tendon (acquired), left ankle; M20.42 Other hammer toe(s) (acquired), left foot; M19.072 Primary osteoarthritis, left ankle and foot; E78.5 Hyperlipidemia, unspecified; F41.1 Generalized anxiety disorder; F17.210 Nicotine dependence, cigarettes, uncomplicated; Z79.899 Other long term (current) drug therapy
CPT/HCPCS: 28750; 28270; 29999; 28308 ×2; 28232; 20900; 64447; 01480; 36415; 73620; 76000; 80307; 82306; 82962; 83036; 83735; 85027; 87081; 93005; C1713; J7120; J2405; J3475

== ENCOUNTER → 2024-05-21 | Outpatient (CLI) | payer OTHER, SELFPAY ==
--- NOTE | 2024-05-21 18:03 | CT_ITS ---
EXAM: CT LEFT LOWER EXTREMITY WITHOUT INTRAVENOUS CONTRAST CLINICAL INDICATION: Left foot pain TECHNIQUE: Helically acquired images were obtained of the left lower extremity without intravenous contrast. 2-D reformats were performed by the technologist. CTDIvol = ( 15.35 ) mGy, DLP = ( 320.44 ) mGycm This CT exam was performed using one or more of the following dose reduction techniques: automated exposure control, adjustment of the mA and/or kV according to patient size, and/or use of iterative reconstruction technique. COMPARISON: No relevant prior studies available. FINDINGS: BONES/JOINTS: Sidney suture is identified involving the second and third metatarsal heads. Surgical fusion hardware identified across the articulation between the medial cuneiform and the first metatarsal. No acute or healing fracture or malalignment. No unusual lytic or sclerotic lesions of bone. No significant tibiotalar joint effusion or posterior subtalar joint effusion. No calcaneal enthesopathy. SOFT TISSUES: Tendons are intact. No radiopaque foreign body. No soft tissue masses or fluid collections. No soft tissue gas. CT/Extremity Lower without Contra IMPRESSION: 1. Remote postsurgical changes. 2. No acute or healing fracture or malalignment. 3. No other findings to explain the clinical presentation. Electronically Signed: Harris Whitfield MD at 23:02 EDT ,
== END | disposition home or self-care (01) ==
LOC: CT 18:01
PROVIDERS: PCP Nurse Practitioner Family; Referring Provider Podiatrist Foot & Ankle Surgery; Visit Provider Podiatrist Foot & Ankle Surgery
DX: M79.672 Pain in left foot (principal); M96.0 Pseudarthrosis after fusion or arthrodesis
CPT/HCPCS: 73700